=== PATIENT | female | born 1950 | race Caucasian/White ===

== ENCOUNTER 2021-01-18 06:33 | Day surgery (SDC) | payer MEDICARE ==
[2021-01-17 11:20] VITALS: BMI 35.5
[2021-01-18] MEDS ORDERED: HYDROcodone/Acetaminophen 5/325 mg Tablet ONE (07:59)
[2021-01-18 09:44] VITALS: TEMP 98.1
[2021-01-18 10:09] VITALS: BP 109/48
== END 2021-01-18 10:05 | disposition home or self-care (01) ==
LOC: RAD 06:33
PROVIDERS: ATTEND Surgery
PROC: B02B1ZZ Computerized Tomography (CT Scan) of Spinal Cord using Low Osmolar Contrast (ICD-10-PCS; principal; 2021-01-18)
DX: M54.16 Radiculopathy, lumbar region (principal); M48.061 Spinal stenosis, lumbar region without neurogenic claudication; M54.12 Radiculopathy, cervical region; Z79.899 Other long term (current) drug therapy; Z91.040 Latex allergy status; Z98.1 Arthrodesis status
CPT/HCPCS: 62304; 72050; 72120; 72132

== ENCOUNTER 2021-02-02 10:36 | Outpatient (CLI) | payer MEDICARE ==
[2021-02-02 21:06] LABS: SARS-CoV-2 PCR by NAA Not Detected (NotDetected)
== END 2021-02-02 10:37 | disposition home or self-care (01) ==
LOC: LABBT 10:36
PROVIDERS: ATTEND Surgery
DX: Z01.812 Encounter for preprocedural laboratory examination (principal); Z20.822 Contact with and (suspected) exposure to COVID-19
CPT/HCPCS: U0003; U0005

== ENCOUNTER 2021-02-07 10:56 | Day surgery (SDC) | payer MEDICARE ==
[2021-02-02 08:53] VITALS: BMI 35.2
[2021-02-07] MEDS ORDERED: Lorazepam 0.5 MG TAB PO SCH (12:00)
== END 2021-02-07 15:15 | disposition home or self-care (01) ==
LOC: MRI 10:56
PROVIDERS: ATTEND Surgery
DX: M48.02 Spinal stenosis, cervical region (principal); M48.03 Spinal stenosis, cervicothoracic region; M25.78 Osteophyte, vertebrae; H81.09 Meniere's disease, unspecified ear; I10 Essential (primary) hypertension; E78.5 Hyperlipidemia, unspecified; E03.9 Hypothyroidism, unspecified; G56.03 Carpal tunnel syndrome, bilateral upper limbs; G56.23 Lesion of ulnar nerve, bilateral upper limbs; G57.81 Other specified mononeuropathies of right lower limb; Z87.891 Personal history of nicotine dependence; Z79.899 Other long term (current) drug therapy; Z91.040 Latex allergy status
CPT/HCPCS: 72141

== ENCOUNTER 2021-03-07 12:18 | Outpatient (CLI) | payer MEDICARE ==
[2021-03-07 14:14] LABS: Hemoglobin 14.9 g/dL (12.0-15.5); Mean Corpuscular HGB CONC 32.5 g/dL (32.0-36.0); Mean Corpuscular Hemoglobin 29.3 pg (27.0-33.0); Mean Corpuscular Volume 90.4 fl (81.6-98.3); Mean Platelet Volume 9.1 fl (7.4-10.4); Platelet Count 354 10x3/uL (150-450); RBC Distribution Width 12.8 % (11.5-14.5); Red Blood Cell (RBC) Count 5.08 10x6/uL (3.90-5.03); White Blood Cell (WBC) Count 9.5 10x3/uL (3.5-10.5)
[2021-03-07 14:36] LABS: Anion Gap 14 mmol/L (10-20); BUN (Urea Nitrogen) 17 mg/dL (9.8-20.1); Calc. Creatinine Clearance 0 mL/min (70-130); Calcium 9.4 mg/dL (7.8-10.44); Carbon Dioxide 28 mmol/L (23-31); Chloride 103 mmol/L (98-107); Glucose 98 mg/dL (83-110); Potassium 4.3 mmol/L (3.5-5.1); Sodium 141 mmol/L (136-145)
[2021-03-07 14:40] LABS: INR-International Normal Ratio 0.9; PTT 23.7 sec (22.0-33.0); Prothrombin Time 10.5 sec (9.5-12.1)
[2021-03-08 08:27] LABS: SARS-CoV-2 PCR by NAA Not Detected (NotDetected)
== END 2021-03-07 12:19 | disposition home or self-care (01) ==
LOC: LABBT 12:18
PROVIDERS: ATTEND Surgery
DX: Z01.818 Encounter for other preprocedural examination (principal); M48.062 Spinal stenosis, lumbar region with neurogenic claudication; M54.16 Radiculopathy, lumbar region; Z20.822 Contact with and (suspected) exposure to COVID-19
CPT/HCPCS: 80048; 85027; 85610; 85730; 93005; U0003; U0005; 93010

== ENCOUNTER 2021-03-15 12:52 | Outpatient (CLI) | payer OTHER ==
[2021-03-16 00:03] LABS: SARS-CoV-2 PCR by NAA Not Detected (NotDetected)
== END 2021-03-15 12:53 | disposition home or self-care (01) ==
LOC: LABBT 12:52
PROVIDERS: ATTEND Surgery
DX: Z01.812 Encounter for preprocedural laboratory examination (principal); M48.062 Spinal stenosis, lumbar region with neurogenic claudication; M54.16 Radiculopathy, lumbar region; Z20.822 Contact with and (suspected) exposure to COVID-19
CPT/HCPCS: U0003; U0005

== ENCOUNTER 2021-03-18 05:46 | Observation (INO) | payer OTHER ==
[2021-03-03 11:12] VITALS: BMI 33.6
[2021-03-18] MEDS ORDERED: Fentanyl 250 MCG/5 ML VIAL ONE ×3 (06:45→11:09)
[2021-03-18] MEDS ORDERED: Ketamine 50 MG/ML (10ML VIAL) ONE (06:45)
[2021-03-18] MEDS ORDERED: HYDROmorphone 0.5 MG/0.5 ML SYRINGE ONE (06:46)
[2021-03-18] MEDS ORDERED: Thrombin 5000 UNITS/5 ML VIAL ONE (07:11)
[2021-03-18] MEDS ORDERED: ceFAZolin Sodium (SDC) 2 GM/100 ML BAG ONE (07:22)
[2021-03-18] MEDS ORDERED: PROPOFOL 200 MG/20 ML VIAL ONE (07:38)
[2021-03-18] MEDS ORDERED: PHENYLEPHRINE-NS 100 MCG/ML 10 ML SYRINGE ONE (07:38)
[2021-03-18] MEDS ORDERED: ePHEDrine 50 MG/ML VIAL ONE (07:38)
[2021-03-18] MEDS ORDERED: Rocuronium Bromide 10 MG/ML (10ML VIAL) ONE (07:38)
[2021-03-18] MEDS ORDERED: Glycopyrrolate 0.2 MG/ML 5 ML SYRINGE ONE (07:38)
[2021-03-18] MEDS ORDERED: Ketorolac Tromethamine 30 MG/ML VIAL ONE (07:38)
[2021-03-18] MEDS ORDERED: Lidocaine 1% PF 5 ML VIAL ONE (07:38)
[2021-03-18] MEDS ORDERED: Ondansetron PF 4 MG/2 ML Vial ONE (07:38)
[2021-03-18] MEDS ORDERED: Acetaminophen/Codeine 30-300mg Tablet PO PRN (09:39)
[2021-03-18] MEDS ORDERED: Acetaminophen 325 MG TAB PO PRN (09:39)
[2021-03-18] MEDS ORDERED: HYDROcodone/Acetaminophen 7.5/325 mg Tablet PO PRN (09:39)
[2021-03-18] MEDS ORDERED: Promethazine HCl 25 MG/ML VIAL IVPB PRN (09:41)
[2021-03-18] MEDS ORDERED: Meperidine HCl/PF 25 MG/ML VIAL SLOW IVP PRN (09:41)
[2021-03-18] MEDS ORDERED: Ondansetron HCl/PF 4 MG/2 ML Vial IVP PRN (09:41)
[2021-03-18] MEDS ORDERED: HYDROmorphone 2 MG/ML VIAL SLOW IVP PRN (09:41)
[2021-03-18] MEDS ORDERED: Promethazine HCl 25 MG/ML VIAL IM PRN (09:41)
[2021-03-18] MEDS ORDERED: Morphine 4 MG/ML VIAL SLOW IVP PRN (09:52)
[2021-03-18] MEDS ORDERED: Melatonin 3 MG TAB PO PRN (09:53)
[2021-03-18] MEDS ORDERED: HYDROmorphone 2 MG/ML VIAL ONE (10:06)
[2021-03-18] MEDS ORDERED: Ondansetron PF 4 MG/2 ML Vial IVP PRN (13:26)
[2021-03-18] MEDS ORDERED: Promethazine HCl 12.5 MG in Sodium Chloride 0.9% 50 ML IVPB PRN (13:26)
[2021-03-18] MEDS: Cyclobenzaprine 10 MG TAB PO PRN ×2 (13:53→21:36)
[2021-03-18] MEDS: HYDROcodone/Acetaminophen 7.5/325 mg Tablet PO PRN ×2 (15:58→19:32)
[2021-03-18] MEDS: Sodium Chloride 0.9% 1,000 ML IV SCH (15:59)
[2021-03-18] MEDS ORDERED: CEFAZOLIN 2 GM, Admixture Fee 1 EACH in Sodium Chloride 0.9% 100 ML IVPB SCH (16:00)
[2021-03-18] MEDS: Metoprolol Tartrate 25 MG TAB PO SCH (20:27)
[2021-03-18] MEDS: Docusate 100 MG CAP PO SCH (20:27)
[2021-03-18] MEDS ORDERED: Montelukast Sodium 10 mg Tablet PO SCH (21:00)
[2021-03-18] MEDS ORDERED: Lisinopril 20 MG TAB PO SCH (21:00)
[2021-03-18] MEDS ORDERED: Atorvastatin Calcium 10 MG TAB PO SCH (21:00)
[2021-03-19] MEDS ORDERED: ceFAZolin 2 GM/Dextrose 50 ML 2 GM in Premix Bag 1 BAG IVPB SCH (00:01)
[2021-03-19] MEDS: HYDROcodone/Acetaminophen 7.5/325 mg Tablet PO PRN ×3 (00:50→11:05)
[2021-03-19] MEDS: traMADol HCl 50 MG TAB PO PRN ×2 (00:50→06:39)
[2021-03-19] MEDS: Sodium Chloride 0.9% 1,000 ML IV SCH (01:20)
[2021-03-19] MEDS: Cyclobenzaprine 10 MG TAB PO PRN (04:48)
[2021-03-19] MEDS ORDERED: Levothyroxine Sodium 50 MCG TAB PO SCH (06:00)
[2021-03-19 08:41] VITALS: TEMP 99
[2021-03-19] MEDS ORDERED: Hydrochlorothiazide 25 MG TAB PO SCH (09:00)
[2021-03-19] MEDS ORDERED: Multivit, Therapeutic 1 TAB PO SCH (09:00)
[2021-03-19] MEDS ORDERED: Stress 600 With Zinc 1 TAB PO SCH (09:00)
[2021-03-19] MEDS: Docusate 100 MG CAP PO SCH (09:23)
[2021-03-19] MEDS: Metoprolol Tartrate 25 MG TAB PO SCH (09:26)
[2021-03-19 09:57] VITALS: BP 96/56
== END 2021-03-19 11:15 | disposition home or self-care (01) ==
LOC: SDC 05:46 → SURG A 09:39
PROVIDERS: ADMIT Surgery; ATTEND Surgery
PROC: 01NB0ZZ Release Lumbar Nerve, Open Approach (ICD-10-PCS; principal; 2021-03-18)
DX: M48.061 Spinal stenosis, lumbar region without neurogenic claudication (principal); M48.8X6 Other specified spondylopathies, lumbar region; M54.16 Radiculopathy, lumbar region; M54.12 Radiculopathy, cervical region; G62.9 Polyneuropathy, unspecified; Z79.899 Other long term (current) drug therapy; Z91.040 Latex allergy status; Z98.1 Arthrodesis status
CPT/HCPCS: 63047; 73100; 76000; 96374; 96375; 96376; G0378 ×2; J0690; J1170; J1885; J2405; J2550; J2704; J3010; J3370; J3490; J7050

== ENCOUNTER 2021-06-09 11:39 | Outpatient (CLI) | payer OTHER ==
[2021-06-09 13:35] LABS: #Basophils 0.1 10x3/uL (0.0-0.2); #Eosinphils 0.2 10x3/uL (0.0-0.5); #Monocytes 0.8 10x3/uL (0.0-1.1); #Neutrophils 5.3 10x3/uL (1.5-8.4); %Basophils 0.9 % (0.0-2.0); %Eosinophils 2.3 % (0.0-6.0); %Monocytes 8.9 % (0.0-10.0); %Neutrophils 58.2 % (40.0-75.0); Hemoglobin 14.7 g/dL (12.0-15.5); Mean Corpuscular HGB CONC 32.4 g/dL (32.0-36.0); Mean Corpuscular Hemoglobin 29.5 pg (27.0-33.0); Mean Corpuscular Volume 91.2 fl (81.6-98.3); Mean Platelet Volume 8.9 fl (7.4-10.4); Platelet Count 328 10x3/uL (150-450); Red Blood Cell (RBC) Count 4.98 10x6/uL (3.90-5.03)
[2021-06-09 13:49] LABS: Anion Gap 14 mmol/L (10-20); BUN (Urea Nitrogen) 19 mg/dL (9.8-20.1); Calc. Creatinine Clearance 0 mL/min (70-130); Calcium 9.6 mg/dL (7.8-10.44); Carbon Dioxide 30 mmol/L (23-31); Chloride 102 mmol/L (98-107); Glucose 101 mg/dL (83-110); Potassium 4.5 mmol/L (3.5-5.1); Sodium 141 mmol/L (136-145)
[2021-06-10 01:01] LABS: SARS-CoV-2 PCR by NAA Not Detected (NotDetected)
== END 2021-06-09 11:40 | disposition home or self-care (01) ==
LOC: LABBT 11:39
PROVIDERS: ATTEND Orthopaedic Surgery Hand Surgery
DX: Z01.818 Encounter for other preprocedural examination (principal); G56.02 Carpal tunnel syndrome, left upper limb; Z20.822 Contact with and (suspected) exposure to COVID-19
CPT/HCPCS: 80048; 85025; 93005; U0003; U0005; 93010

== ENCOUNTER 2021-06-13 10:49 | Day surgery (SDC) | payer OTHER ==
[2021-06-08 11:42] VITALS: BMI 33.2
[2021-06-13] MEDS ORDERED: ceFAZolin (BATCH) 2 GM/100 ML BAG ONE (12:01)
[2021-06-13] MEDS ORDERED: Neomycin-Polymyxin 1 ML AMP ONE (12:56)
[2021-06-13] MEDS ORDERED: Bacitracin Zinc Ointment 30 gm TUBE ONE (12:56)
[2021-06-13] MEDS ORDERED: Bupivacaine PF 0.5% 30 ML VIAL ONE ×2 (12:56→14:50)
[2021-06-13] MEDS ORDERED: Betamet Acet/Betamet Na Ph 30 MG/5 ML VIAL ONE (12:56)
[2021-06-13] MEDS ORDERED: Fentanyl 100 MCG/2 ML VIAL ONE ×2 (13:42→16:34)
[2021-06-13] MEDS ORDERED: Midazolam HCl 2 mg/2 ml Vial ONE (13:42)
[2021-06-13] MEDS ORDERED: Lidocaine 1% PF 5 ML VIAL ONE (14:20)
[2021-06-13] MEDS ORDERED: PROPOFOL 200 MG/20 ML VIAL ONE (14:20)
[2021-06-13] MEDS ORDERED: Dexamethasone 20 MG/5 ML VIAL ONE (14:20)
[2021-06-13] MEDS ORDERED: Ondansetron PF 4 MG/2 ML Vial ONE (14:20)
[2021-06-13] MEDS ORDERED: Metoclopramide HCl 10 MG/2 ML VIAL ONE (14:20)
[2021-06-13] MEDS ORDERED: ePHEDrine 50 MG/ML VIAL ONE (14:20)
[2021-06-13] MEDS ORDERED: Ketorolac Tromethamine 30 MG/ML VIAL ONE (17:01)
[2021-06-13] MEDS ORDERED: Ondansetron ODT 4 MG TAB ONE (17:51)
== END 2021-06-13 18:10 | disposition home or self-care (01) ==
LOC: SDC 10:49
PROVIDERS: ATTEND Orthopaedic Surgery Hand Surgery
PROC: 01N50ZZ Release Median Nerve, Open Approach (ICD-10-PCS; principal; 2021-06-13)
PROC: 01N40ZZ Release Ulnar Nerve, Open Approach (ICD-10-PCS; 2021-06-13)
DX: G56.23 Lesion of ulnar nerve, bilateral upper limbs (principal); G56.03 Carpal tunnel syndrome, bilateral upper limbs; M18.0 Bilateral primary osteoarthritis of first carpometacarpal joints; I10 Essential (primary) hypertension; E78.5 Hyperlipidemia, unspecified; E03.9 Hypothyroidism, unspecified; Z87.891 Personal history of nicotine dependence; Z79.890 Hormone replacement therapy; Z79.899 Other long term (current) drug therapy; Z88.5 Allergy status to narcotic agent; Z88.6 Allergy status to analgesic agent; Z91.040 Latex allergy status; Z91.048 Other nonmedicinal substance allergy status
CPT/HCPCS: J0690; J0702; J1100; J1885; J2250; J2405; J2704; J2765; J3010; J3490; Q0162; S0020